=== PATIENT | female | born 1990 | race African-American/Black ===

== ENCOUNTER 2025-02-05 00:43 | Emergency (ER) | payer OTHER ==
[~2025-02-05] VITALS: Ht 165.1 cm; Wt 68.2 kg
[2025-02-05 00:51] VITALS: TEMP 98.1
[2025-02-05 01:14] VITALS: BP 130/63; PULSE 82; RESP 14; O2SAT 100
[2025-02-06] MEDS ORDERED: CALCIUM CHLORIDE 100 MG/ML 10 ML SYRINGE IVP ONE (05:29)
[2025-02-06] MEDS ORDERED: NOREPINEPHRINE 8 MG/0.9 % NACL 250 ML IV ONE (05:29)
== END 2025-02-05 02:17 | disposition left against medical advice (07) ==
LOC: EMS 00:50
DX: S69.91XA Unspecified injury of right wrist, hand and finger(s), initial encounter (principal); Z53.21 Procedure and treatment not carried out due to patient leaving prior to being seen by health care provider; W22.8XXA Striking against or struck by other objects, initial encounter; Y93.89 Activity, other specified; Y92.89 Other specified places as the place of occurrence of the external cause; Y99.8 Other external cause status
CPT/HCPCS: J3490